=== PATIENT | female | born 1975 | race Caucasian/White ===

== ENCOUNTER 2018-09-25 16:05 | Observation (INO) ==
[2018-09-25] MEDS ORDERED: Aspirin 81 MG TAB.CHEW PO ONE (16:22)
--- NOTE | 2018-09-25 16:33 | Emergency Department Note ---
Disposition Clinical Impression: Unstable angina Disposition: Admitted As Inpatient Condition: Good Forms: ED Satisfaction Letter Chest Pain HPI - General Chief Complaint: ED Chest Pain Stated Complaint: CP x1 day Time Seen by Provider: 09/25/18 16:22 Vital Signs Reviewed: Yes Nursing Notes Reviewed: Yes - History of Present Illness HPI Narrative: 43-year-old female past medical history of coronary artery disease with heart catheterization not requiring stents or any other grafting. Presents emergency Department with a day and a half of chest pain and discomfort and tightness. Patient states it radiates into the left side of her neck into her left arm. Patient reported some cough or last few days as well, most. Production. She is a smoker. Patient states that the symptoms have been worse on exertion. They have been intermittent, and it just got worse today which prompted her visit to the emergency department. Severity scale (1-10): 4 - Related Data Home Medications Medication Instructions Recorded Confirmed Labetalol [Trandate] 100 mg PO BID 02/06/16 09/25/18 Aspirin [Lo-Dose Aspirin EC] 81 mg PO DAILY 09/25/18 09/25/18 Atorvastatin [Lipitor] 40 mg PO HS 09/25/18 09/25/18 Buprenorphine HCl/Naloxone HCl 1 tab SL BID 09/25/18 09/25/18 [Buprenorphin-Naloxon 8-2 mg Sl] Gabapentin [Neurontin] 100 mg PO TID 09/25/18 09/25/18 Lisinopril [Zestril] 10 mg PO DAILY 09/25/18 09/25/18 Allergies Allergy/AdvReac Type Severity Reaction Status Date / Time No Known Allergies Allergy Verified 09/24/15 10:23 All systems ED: reviewed and negative except as stated. Review of Systems: As Per HPI Constitutional: Denies: fever Cardiovascular: Reports: chest pain Respiratory: Reports: cough, dyspnea Gastrointestinal: Denies: abdominal pain, nausea, vomiting Genitourinary: Denies: urgency, dysuria, frequency Musculoskeletal: Reports: neck pain. 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 Absent: respiratory distress, accessory muscle use - Cardiovascular Cardiovascular exam: Present: regular rate, normal rhythm - Abdominal Exam Abdominal exam: Present: soft, Non-Tender. Absent: distention, guarding, rebound, rigidity - Extremities Exam Extremities exam: Present: normal capillary refill - Back Exam Back exam: Present: full ROM - Neurological Exam Neurological exam: Present: alert, oriented X3, CN II-XII intact - Psychiatric Psychiatric exam: Present: normal affect, normal mood - Skin Skin exam: Present: warm, dry, intact, normal color. Absent: rash Course Vital Signs Temperature 98.3 F 09/25/18 16:16 Pulse Rate 86 09/25/18 16:16 Respiratory Rate 16 09/25/18 16:16 Blood Pressure 131/87 09/25/18 16:16 O2 Sat by Pulse Oximetry 100 09/25/18 16:16 Temperature 98.3 F 09/25/18 16:30 Pulse Rate 92 09/25/18 18:41 Respiratory Rate 15 09/25/18 18:41 Blood Pressure 141/95 09/25/18 18:41 O2 Sat by Pulse Oximetry 99 09/25/18 18:41 Oxygen Delivery Oxygen Delivery Room Air Chest Pain - [facility] Narrative Medical decision making narrative: 43-year-old female presents emergency department with concern for intermittent chest pain over the last day and a half. Patient's initial EKG revealed some ST depressions in the septal and lateral leads. The repeat EKG shortly after, and these are no longer present. Patient has history of coronary artery disease. Chest x-ray did not reveal any cardiopulmonary abnormality. Troponin was negative. We also gave patient a DuoNeb and steroids here in the emergency department as there was concern that some of her symptoms related to a COPD exacerbation. Symptoms or help some. However, she was uncertain chest pain shortness of breath. Patient was initially given nitroglycerin sublingually and this helped out her chest pain. She started having chest pain later on throughout her stay and she was given another 2 nitroglycerin which relieved her chest pain completely. Patient chest pain-free. Spoke with her about admitting her due to her recurrent chest pain and the concern that she needed further observation. She agrees with plan. Patient hemodynamically stable not in acute distress at time of admission to the hospitalist. We did start patient on heparin drip via ACS protocol as well as aspirin. Vital Signs Temperature 98.3 F 09/25/18 16:16 Pulse Rate 86 09/25/18 16:16 Respiratory Rate 16 09/25/18 16:16 Blood Pressure 131/87 09/25/18 16:16 O2 Sat by Pulse Oximetry 100 09/25/18 16:16 Temperature 98.3 F 09/25/18 16:30 Pulse Rate 92 09/25/18 18:41 Respiratory Rate 15 09/25/18 18:41 Blood Pressure 141/95 09/25/18 18:41 O2 Sat by Pulse Oximetry 99 09/25/18 18:41 Oxygen Delivery Oxygen Delivery Room Air Chest X-Ray 09/25/18 16:22 IMPRESSION: No acute process. D/ / Drake Arriaga MD / Drake Arriaga MD Interpreting Provider: Drake Arriaga MD - Lab Data Result diagrams: 09/25/18 16:33 09/25/18 16:33 Lab Results 09/25/18 09/25/18 09/25/18 Range/Units 16:33 16:33 16:33 WBC 8.6 (4.3-11.1) K/mcL RBC 4.99 H (3.82-4.97) M/mcL Hgb 16.3 H (11.5-15.4) g/dL Hct 48.6 H (35.3-44.9) % MCV 97.4 (83.0-100.0) fL MCH 32.7 (28.0-33.3) pg MCHC 33.5 (31.6-35.5) g/dL RDW 12.9 (11.5-14.5) % Plt Count 239 (140-400) K/mcL MPV 10.3 (9.4-12.4) fL Immature Gran % 0.6 (0-4) % Seg Neutrophils % 64.3 % Lymphocytes % 24.4 % Monocytes % 8.8 % Eosinophils % 1.0 % Basophils % 0.9 % Neutrophils # 5.5 (1.6-8.9) K/mcL Lymphocytes # 2.1 (0.6-4.6) K/mcL Monocytes # 0.8 (0.0-1.3) K/mcL Eosinophils # 0.1 (0.0-0.6) K/mcL Basophils # 0.1 (0.0-0.2) K/mcL PT 11.1 (9.4-12.1) Seconds INR 1.0 APTT 30.2 (26.0-36.0) Seconds Sodium (136-145) mEq/L Potassium (3.5-5.1) mEq/L Chloride (98-107) mEq/L Carbon Dioxide (23-29) mEq/L BUN (6-20) mg/dL Creatinine (0.60-1.20) mg/dL Est GFR ( Amer) (> 60) Est GFR (Non-Af Amer) (> 60) BUN/Creatinine Ratio (6-26) Glucose (70-105) mg/dL Calculated Osmolality (280-300) Calcium (8.6-10.3) mg/dL Troponin I (< 0.04) ng/mL B-Natriuretic Peptide 19 (Less than 100) pg/mL Urine Color (Yellow) Urine Clarity (Clear) Urine pH (5.0-8.0) pH Units Ur Specific [place] (1.010-1.025) Urine Protein (Neg-Trace) mg/dL Urine Glucose (UA) (Normal) mg/dL Urine Ketones (Negative) mg/dL Urine Blood (Negative) Urine Nitrite (Negative) Urine Bilirubin (Negative) Urine Urobilinogen (Normal) mg/dL Ur Leukocyte Esterase (Negative) Urine Microscopic RBC (0-3) per hpf Urine Microscopic WBC (0-3) per hpf Ur Squamous Epith Cells (None-Few) per lpf Urine Bacteria (None-Few) per hpf Hyaline Casts (None-Few) per lpf Ur Culture Indicated? (NO) 09/25/18 09/25/18 Range/Units 16:33 17:18 WBC (4.3-11.1) K/mcL RBC (3.82-4.97) M/mcL Hgb (11.5-15.4) g/dL Hct (35.3-44.9) % MCV (83.0-100.0) fL MCH (28.0-33.3) pg MCHC (31.6-35.5) g/dL RDW (11.5-14.5) % Plt Count (140-400) K/mcL MPV (9.4-12.4) fL Immature Gran % (0-4) % Seg Neutrophils % % Lymphocytes % % Monocytes % % Eosinophils % % Basophils % % Neutrophils # (1.6-8.9) K/mcL Lymphocytes # (0.6-4.6) K/mcL Monocytes # (0.0-1.3) K/mcL Eosinophils # (0.0-0.6) K/mcL Basophils # (0.0-0.2) K/mcL PT (9.4-12.1) Seconds INR APTT (26.0-36.0) Seconds Sodium 140 (136-145) mEq/L Potassium 3.7 (3.5-5.1) mEq/L Chloride 106 (98-107) mEq/L Carbon Dioxide 24 (23-29) mEq/L BUN 19 (6-20) mg/dL Creatinine 0.82 (0.60-1.20) mg/dL Est GFR ( Amer) > 60 (> 60) Est GFR (Non-Af Amer) > 60 (> 60) BUN/Creatinine Ratio 23 (6-26) Glucose 132 H (70-105) mg/dL Calculated Osmolality 294 (280-300) Calcium 10.3 (8.6-10.3) mg/dL Troponin I < 0.03 (< 0.04) ng/mL B-Natriuretic Peptide (Less than 100) pg/mL Urine Color Dark Yellow (Yellow) Urine Clarity Clear (Clear) Urine pH 6.0 (5.0-8.0) pH Units Ur Specific [place] 1.029 H (1.010-1.025) Urine Protein Trace (Neg-Trace) mg/dL Urine Glucose (UA) Normal (Normal) mg/dL Urine Ketones Trace H (Negative) mg/dL Urine Blood Negative (Negative) Urine Nitrite Negative (Negative) Urine Bilirubin Small H (Negative) Urine Urobilinogen Normal (Normal) mg/dL Ur Leukocyte Esterase Trace H (Negative) Urine Microscopic RBC 0-3 (0-3) per hpf Urine Microscopic WBC 5-15 H (0-3) per hpf Ur Squamous Epith Cells Many H (None-Few) per lpf Urine Bacteria Few (None-Few) per hpf Hyaline Casts Moderate H (None-Few) per lpf Ur Culture Indicated? NO. A (NO) - EKG Data EKG attestation: Yes I reviewed and interpreted this EKG. EKG results narrative: EKG #1 16:10 Heart rate 77 bpm, ID interval 112 ms, QRS duration 92 ms, normal axis. ST depressions in the septal and lateral leads. EKG #2 16:33 ST depressions are no longer present sinus rhythm Heart Score - Score History: Highly Suspicious EKG: Normal Age: Less than 45 Risk Factors: Equal/Greater than 3 risk factor or history of atherosclerotic disease Troponin: Less than normal limit HEART Score Total: 4 Attestation Statement - Attestation Attestation: I, Erick Camargo DO, examined this patient [id number] and my medical decision-making was reviewed with Dr. Hong Holden, Resident Physician. I agree with the documented findings, disposition and treatment plan as described except to the extent set forth below. Please see my progress notes for details.
[2018-09-25] MEDS: Nitroglycerin 0.4 MG TAB.SUBL SL ONE ×3 (16:44→18:30)
[2018-09-25 16:49] LABS: Basophils # 0.1 K/mcL (0.0-0.2); Basophils % 0.9 %; Eosinophils # 0.1 K/mcL (0.0-0.6); Hematocrit 48.6 % (35.3-44.9); Hemoglobin 16.3 g/dL (11.5-15.4); Immature Granulocytes % 0.6 % (0-4); Lymphocytes # 2.1 K/mcL (0.6-4.6); Lymphocytes % 24.4 %; Mean Corpuscular HGB Conc 33.5 g/dL (31.6-35.5); Mean Corpuscular Hemoglobin 32.7 pg (28.0-33.3); Mean Corpuscular Volume 97.4 fL (83.0-100.0); Mean Platelet Volume 10.3 fL (9.4-12.4); Monocytes # 0.8 K/mcL (0.0-1.3); Monocytes % 8.8 %; Neutrophils # 5.5 K/mcL (1.6-8.9); Platelet Count 239 K/mcL (140-400); Red Blood Count 4.99 M/mcL (3.82-4.97); Red Cell Distribution Width 12.9 % (11.5-14.5); Segmented Neutrophils % 64.3 %
[2018-09-25 16:56] LABS: Prothrombin Time 11.1 Seconds (9.4-12.1)
[2018-09-25 16:58] LABS: Activated Partial Thrombo Time 30.2 Seconds (26.0-36.0)
[2018-09-25] MEDS ORDERED: Ipratropium/Albuterol Neb 3 ML IH ONE (16:59)
[2018-09-25] MEDS ORDERED: predniSONE 20 MG TABLET PO ONE (16:59)
[2018-09-25 17:08] LABS: BUN/Creatinine Ratio 23 (6-26); Blood Urea Nitrogen 19 mg/dL (6-20); Calcium 10.3 mg/dL (8.6-10.3); Carbon Dioxide 24 mEq/L (23-29); Chloride 106 mEq/L (98-107); Glucose 132 mg/dL (70-105); Osmolality,Calculated 294 (280-300); Potassium 3.7 mEq/L (3.5-5.1); Sodium 140 mEq/L (136-145); Troponin I < 0.03 ng/mL (< 0.04); eGFR For Non-African Americans > 60 (> 60)
--- NOTE | 2018-09-25 17:18 | Emergency Department Note ---
Disposition Clinical Impression: Unstable angina, Wheezing Chest pain Qualifiers: Chest pain type: unspecified Qualified Code(s): R07.9 - Chest pain, unspecified Disposition: Admitted As Inpatient Condition: Fair Referrals: Kathy Stubbs MD [Primary Care Provider] - Forms: ED Satisfaction Letter Time of Disposition: 19:49 General Adult HPI - General Chief complaint: ED Chest Pain Stated complaint: CP x1 day Time Seen by Provider: 09/25/18 16:22 Source: patient Limitations: no limitations - History of Present Illness Pain Scale: 2 - Related Data Home Medications Medication Instructions Recorded Confirmed Labetalol [Trandate] 100 mg PO BID 02/06/16 09/25/18 Aspirin [Lo-Dose Aspirin EC] 81 mg PO DAILY 09/25/18 09/25/18 Atorvastatin [Lipitor] 40 mg PO HS 09/25/18 09/25/18 Buprenorphine HCl/Naloxone HCl 1 tab SL BID 09/25/18 09/25/18 [Buprenorphin-Naloxon 8-2 mg Sl] Gabapentin [Neurontin] 100 mg PO TID 09/25/18 09/25/18 Lisinopril [Zestril] 10 mg PO DAILY 09/25/18 09/25/18 Allergies Allergy/AdvReac Type Severity Reaction Status Date / Time No Known Allergies Allergy Verified 09/24/15 10:23 Past Medical History - Past Medical History Medical history: Reports: hypertension, myocardial infarction Surgical history: Reports: hysterectomy, orthopedic, other Psychiatric history: Reports: no psych history 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 history - Social History Smoking Status: Current every day smoker Smokeless Tobacco Status: No Alcohol use: Reports: none Drug use: Reports: none Physical Exam - General Limitations: no limitations General appearance: alert Course Vital Signs Temperature 98.3 F 09/25/18 16:16 Pulse Rate 86 09/25/18 16:16 Respiratory Rate 16 09/25/18 16:16 Blood Pressure 131/87 09/25/18 16:16 O2 Sat by Pulse Oximetry 100 09/25/18 16:16 Temperature 98.3 F 09/25/18 16:30 Pulse Rate 92 09/25/18 18:41 Respiratory Rate 15 09/25/18 18:41 Blood Pressure 141/95 09/25/18 18:41 O2 Sat by Pulse Oximetry 99 09/25/18 18:41 Oxygen Delivery Oxygen Delivery Room Air Medical Decision Making - Lab Data Result diagrams: 09/25/18 16:33 09/25/18 16:33 Lab Results 09/25/18 09/25/18 09/25/18 Range/Units 16:33 16:33 16:33 WBC 8.6 (4.3-11.1) K/mcL RBC 4.99 H (3.82-4.97) M/mcL Hgb 16.3 H (11.5-15.4) g/dL Hct 48.6 H (35.3-44.9) % MCV 97.4 (83.0-100.0) fL MCH 32.7 (28.0-33.3) pg MCHC 33.5 (31.6-35.5) g/dL RDW 12.9 (11.5-14.5) % Plt Count 239 (140-400) K/mcL MPV 10.3 (9.4-12.4) fL Immature Gran % 0.6 (0-4) % Seg Neutrophils % 64.3 % Lymphocytes % 24.4 % Monocytes % 8.8 % Eosinophils % 1.0 % Basophils % 0.9 % Neutrophils # 5.5 (1.6-8.9) K/mcL Lymphocytes # 2.1 (0.6-4.6) K/mcL Monocytes # 0.8 (0.0-1.3) K/mcL Eosinophils # 0.1 (0.0-0.6) K/mcL Basophils # 0.1 (0.0-0.2) K/mcL PT 11.1 (9.4-12.1) Seconds INR 1.0 APTT 30.2 (26.0-36.0) Seconds Sodium (136-145) mEq/L Potassium (3.5-5.1) mEq/L Chloride (98-107) mEq/L Carbon Dioxide (23-29) mEq/L BUN (6-20) mg/dL Creatinine (0.60-1.20) mg/dL Est GFR ( Amer) (> 60) Est GFR (Non-Af Amer) (> 60) BUN/Creatinine Ratio (6-26) Glucose (70-105) mg/dL Calculated Osmolality (280-300) Calcium (8.6-10.3) mg/dL Troponin I (< 0.04) ng/mL B-Natriuretic Peptide 19 (Less than 100) pg/mL Urine Color (Yellow) Urine Clarity (Clear) Urine pH (5.0-8.0) pH Units Ur Specific [place] (1.010-1.025) Urine Protein (Neg-Trace) mg/dL Urine Glucose (UA) (Normal) mg/dL Urine Ketones (Negative) mg/dL Urine Blood (Negative) Urine Nitrite (Negative) Urine Bilirubin (Negative) Urine Urobilinogen (Normal) mg/dL Ur Leukocyte Esterase (Negative) Urine Microscopic RBC (0-3) per hpf Urine Microscopic WBC (0-3) per hpf Ur Squamous Epith Cells (None-Few) per lpf Urine Bacteria (None-Few) per hpf Hyaline Casts (None-Few) per lpf Ur Culture Indicated? (NO) 09/25/18 09/25/18 Range/Units 16:33 17:18 WBC (4.3-11.1) K/mcL RBC (3.82-4.97) M/mcL Hgb (11.5-15.4) g/dL Hct (35.3-44.9) % MCV (83.0-100.0) fL MCH (28.0-33.3) pg MCHC (31.6-35.5) g/dL RDW (11.5-14.5) % Plt Count (140-400) K/mcL MPV (9.4-12.4) fL Immature Gran % (0-4) % Seg Neutrophils % % Lymphocytes % % Monocytes % % Eosinophils % % Basophils % % Neutrophils # (1.6-8.9) K/mcL Lymphocytes # (0.6-4.6) K/mcL Monocytes # (0.0-1.3) K/mcL Eosinophils # (0.0-0.6) K/mcL Basophils # (0.0-0.2) K/mcL PT (9.4-12.1) Seconds INR APTT (26.0-36.0) Seconds Sodium 140 (136-145) mEq/L Potassium 3.7 (3.5-5.1) mEq/L Chloride 106 (98-107) mEq/L Carbon Dioxide 24 (23-29) mEq/L BUN 19 (6-20) mg/dL Creatinine 0.82 (0.60-1.20) mg/dL Est GFR ( Amer) > 60 (> 60) Est GFR (Non-Af Amer) > 60 (> 60) BUN/Creatinine Ratio 23 (6-26) Glucose 132 H (70-105) mg/dL Calculated Osmolality 294 (280-300) Calcium 10.3 (8.6-10.3) mg/dL Troponin I < 0.03 (< 0.04) ng/mL B-Natriuretic Peptide (Less than 100) pg/mL Urine Color Dark Yellow (Yellow) Urine Clarity Clear (Clear) Urine pH 6.0 (5.0-8.0) pH Units Ur Specific [place] 1.029 H (1.010-1.025) Urine Protein Trace (Neg-Trace) mg/dL Urine Glucose (UA) Normal (Normal) mg/dL Urine Ketones Trace H (Negative) mg/dL Urine Blood Negative (Negative) Urine Nitrite Negative (Negative) Urine Bilirubin Small H (Negative) Urine Urobilinogen Normal (Normal) mg/dL Ur Leukocyte Esterase Trace H (Negative) Urine Microscopic RBC 0-3 (0-3) per hpf Urine Microscopic WBC 5-15 H (0-3) per hpf Ur Squamous Epith Cells Many H (None-Few) per lpf Urine Bacteria Few (None-Few) per hpf Hyaline Casts Moderate H (None-Few) per lpf Ur Culture Indicated? NO. A (NO) Attestation Statement - Attestation Attestation: I, Erick Camargo DO, examined this patient [id number] and my medical decision-making was reviewed with Dr. Hong Holden, Resident Physician. I agree with the documented findings, disposition and treatment plan as described ex cept to the extent set forth below. Please see my progress notes for details. 43-year-old female presents to the emergency room for evaluation of chest tightness and pain. Patient has had these symptoms for approximately 24 hours at this time. She is felt lightheaded been progressively getting worse over that timeframe. Currently, she denies fevers, chills, nausea, vomiting, [place] rrhea. Denies any headache or vision change. Denies any specific shortness of breath but she is a heavy smoker. She is never been diagnosed with COPD before in the past. Vital signs otherwise unremarkable initially. EKG was collected in triage and does have some concerning T-wave inversions noted that appear to be different from previous but her most recent EKG prior to that was not available to initially visualize. Patient was symptomatic control started this time and nitroglycerin, aspirin, EKG CBC chemistry troponin and BNP. Chest x- ray will also be ordered. On physical exam the patient is resting comfortably in the bed. She has had some moderate relief with her first 2 doses of nitroglycerin. Her heart is regular. Lungs are diminished with poor air movement with intermittent expiratory wheezing noted in the peripheries. Patient will have breathing treatments and steroids provided at this time. Expect patient will require admission for either ACS rule out versus COPD ex acerbation. Patient does have a concerning cardiac history including a catheterization several years ago for similar issue. Patient is otherwise currently stable this time. Symptomatically controlled will be completed and then disposition will be determined. See detailed documentation of the physical exam, medical intervention, medical decision-making and disposition in the resident physician's note. 194 Patient had reemergence of her chest discomfort after the initial 2 nitroglycerin that were given. Breathing treatments did help the tightness. Prior to the reemergence of the pain the patient was 100% asymptomatic. Repeat doses of nitroglycerin were given again. The symptoms completely resolved again at this time. Patient will be started on heparin here in the emergency room s econdary to the presentation concerning for unstable angina. Her EKG has not shown any changes while here and her troponin was negative. The symptoms have been present for multiple hours of pain. Clinical suspicion is more for a cardiopulmonary mixed presentation as opposed to strictly cardiac. Patient will be observed in the hospital setting for continuation of care. Dr. Contreras was contacted and he had no other recommendations at this time. Patient has denied any vaginal bleeding or discharge. Denies any history of GI bleeds or rectal bleeds at this point. Patient is otherwise clinically stable will be monitored here in the emergency room until the admission process is completed.
[2018-09-25 17:29] LABS: Bilirubin,Urine Small (Negative); Blood,Urine Negative (Negative); Clarity,Urine Clear (Clear); Color,Urine Dark Yellow (Yellow); Glucose,Urine (UA) Normal (Normal); Ketones,Urine Trace mg/dL (Negative); Leukocyte Esterase,Urine Trace (Negative); Nitrite,Urine Negative (Negative); Protein,Urine Trace mg/dL (Neg-Trace); Specific Gravity,Urine 1.029 (1.010-1.025); Urobilinogen,Urine Normal (Normal)
[2018-09-25 17:30] LABS: Bacteria,Urine Few per hpf (None-Few); Hyaline Casts,Urine Moderate per lpf (None-Few); RBC,Urine 0-3 per hpf (0-3); Squamous Epithelial Cell,Urine Many per lpf (None-Few)
[2018-09-25] MEDS ORDERED: Ondansetron 4 MG/2 ML VIAL IVP ONE (18:21)
[2018-09-25] MEDS ORDERED: Nitroglycerin 0.4 MG TAB.SUBL SL ONE (18:25)
[2018-09-25] MEDS ORDERED: *HR* Heparin 5,000 UNIT/ML VIAL IVP ONE (19:48)
[2018-09-25] MEDS ORDERED: *HR* Heparin 5,000 UNIT/ML VIAL IVP PRN ×2 (19:48)
[2018-09-25] MEDS ORDERED: Heparin 25,000 UNIT/500 ML D5W 25,000 UNIT/500 ML BAG IVC SCH (20:00)
[2018-09-25 20:31] LABS: Heparin anti-factor XA UFH 0.05 IU/mL (0.30-0.70); Prothrombin Time 11.6 Seconds (9.4-12.1)
[2018-09-25] MEDS: BUPRENORPHINE/NALOXONE 8-2MG SL SCH (21:41)
[2018-09-25] MEDS: Gabapentin 100 MG CAPSULE PO SCH (21:52)
[2018-09-25] MEDS ORDERED: Ipratropium/Albuterol Neb 3 ML IH SCH (22:00)
--- NOTE | 2018-09-25 23:52 | Internal Med History&Physical ---
Date of Encounter: 09/25/18 Time of Encounter: 23:50 Internal Medicine - H&P: HPI Chief complaint: Chest pain Plans for Post Hospital Care: Home History of present illness: Cleo Collier is a 43 year old woman who reports a history of CAD s/p cath in 2013 but no stent placement who presents to the ED complaining of left sided chest pain with radiation to her jaw and neckline associated with difficulty breathing and lightheadedness. She states that it started last night at rest and subsided when she went to sleep but again it recurred today and has been persistent. She feels it is worsened by exertion although it remains intermi ttent in apparition. She was given laoding dose of ASA and required 2 NTG to obtain modest relief. By the time her chest pain returned, she was placed on heparin drip in the ER prior to admission. Her initial EKG was concerning for some ST segment depressions in the lateral leads however repeat was unrevealing. Initial troponin negative. She is admitted for ongoing observation. PMHx: HTN, CAD. SHx: Active Smoker, denies illicit drug use. FHx: HTN in father. Review of systems: All systems reviewed and negative except as listed above in the HPI. Past Med Surg Social Fam HX - Past Medical History Medical history: hypertension, myocardial infarction Psychiatric history: no psych history - Past Surgical History Surgical History: hysterectomy, orthopedic, other Additional surgical history: ORTIZ AND PINS IN RIGHT LEG - Social History Smoking Status: Current every day smoker Packs per day: 1 Smokeless Tobacco Status: No Alcohol use: none Drug use: none - Family History Mother History Unknown: Yes Living Status: Still Living Internal Medicine - H&P: Meds Labetalol [Trandate] 100 mg PO BID 02/06/16 [History] Aspirin [Lo-Dose Aspirin EC] 81 mg PO DAILY 09/25/18 [History] Atorvastatin [Lipitor] 40 mg PO HS 09/25/18 [History] Buprenorphine HCl/Naloxone HCl [Buprenorphin-Naloxon 8-2 mg Sl] 1 tab SL BID 09/25/18 [History] Gabapentin [Neurontin] 100 mg PO TID 09/25/18 [History] Lisinopril [Zestril] 10 mg PO DAILY 09/25/18 [History] Allergy/AdvReac Type Severity Reaction Status Date / Time No Known Allergies Allergy Verified 09/24/15 10:23 All Systems PM: A 10-system review of systems was performed and is negative for pertinent findings except as documented above in the HPI. - Constitutional Vitals: Temp Pulse Resp BP Pulse Ox 97.8 F 69 14 155/88 97 09/25/18 23:08 09/25/18 23:08 09/25/18 23:08 09/25/18 23:08 09/25/18 23:08 Exam: Vitals: Reviewed General: Well-developed, NAD, smells of cigarettes. Skin: Warm and supple. HEENT: Moist mucous membranes. No conjunctivae pallor. Neck: No lymphadenopathy. No JVD. No carotid bruits. No palpable thyroid. Chest: Normal thoracic expansion. Normal breath sounds. Clear to auscultation. Heart: Normal S1 & S2; rhythmic. No rubs or murmurs. Abdomen: Non-distended, soft and non-tender to palpation. No peritoneal reaction. Extremities: No clubbing, cyanosis or edema. No calf tenderness. Normal distal pulses. Neurological: Awake, alert and oriented to person, place and time. No focal deficits. Psych: Affect appropriate. Internal Med - H&P Results - Labs CBC & Chem 7: 09/25/18 16:33 09/25/18 16:33 Labs: Short CBC 09/25/18 Range/Units 16:33 WBC 8.6 (4.3-11.1) K/mcL Hgb 16.3 H (11.5-15.4) g/dL Hct 48.6 H (35.3-44.9) % Plt Count 239 (140-400) K/mcL Neutrophils # 5.5 (1.6-8.9) K/mcL BMP 09/25/18 16:33 Sodium 140 Potassium 3.7 Chloride 106 Carbon Dioxide 24 BUN 19 Creatinine 0.82 Glucose 132 H Calcium 10.3 Cardiac Enzymes 09/25/18 Range/Units 16:33 Troponin I < 0.03 (< 0.04) ng/mL Urine 09/25/18 Range/Units 17:18 Urine Color Dark Yellow (Yellow) Urine Clarity Clear (Clear) Urine pH 6.0 (5.0-8.0) pH Units Ur Specific [place] 1.029 H (1.010-1.025) Urine Protein Trace (Neg-Trace) mg/dL Urine Glucose (UA) Normal (Normal) mg/dL - Impressions ITS Impressions Chest X-Ray 09/25/18 16:22 IMPRESSION: No acute process. D/ / Drake Arriaga MD / Drake Arriaga MD Interpreting Provider: Drake Arriaga MD - Assessment and plan (1) Chest pain Current Visit: Yes Status: Acute Assessment and plan: The patient's symptoms are rather concerning and could be seen as unstable angina. Will continue to monitor on telemetry and trend troponins. Will discontinue heparin gtt if she remains clinically stable and negative enzymes. Will keep NPO as she may benefit from a stress test in the morning. Qualifiers: Chest pain type: precordial pain Qualified Code(s): R07.2 - Precordial pain (2) CAD (coronary artery disease) Current Visit: Yes Status: Acute Assessment and plan: Continue daily aspirin and high intensity statin. Qualifiers: Coronary Disease-Associated Artery/Lesion type: [place] artery [place] vs. transplanted heart: [place] heart Associated angina: with unstable angina Qualified Code(s): I25.110 - Atherosclerotic heart disease of [place] coronary artery with unstable angina pectoris (3) HTN (hypertension) Current Visit: Yes Status: Acute Assessment and plan: We will resume her oral antihypertensive agents. Qualifiers: Hypertension type: essential hypertension Qualified Code(s): I10 - Essential (primary) hypertension (4) Smoker Current Visit: Yes Status: Acute Assessment and plan: Counseled accordingly and resources made available. (5) DVT prophylaxis Current Visit: Yes Status: Acute Assessment and plan: Subcutaneous heparin. - Time Spent With Patient Total time spent is greater than 50% in coordination of care (as documented) at patient's floor/unit and/or counseling patient: Greater than 35 minutes
[2018-09-26] MEDS ORDERED: Ipratropium/Albuterol Neb 3 ML IH PRN (00:10)
[2018-09-26] MEDS ORDERED: *HR* Heparin 5,000 UNIT/ML VIAL SQ SCH (06:00)
[2018-09-26 06:08] LABS: Amphetamine Screen,Urine Negative ng/mL (Cutoff=1000); Barbiturate Screen,Urine Negative ng/mL (Cutoff=200)
[2018-09-26 06:09] LABS: Benzodiazepines Screen,Urine Negative ng/mL (Cutoff=300); Cannabinoid Screen,Urine Negative ng/mL (Cutoff = 50); Cocaine Screen,Urine Negative ng/mL (Cutoff= 300); Opiate Screen,Urine Negative ng/mL (Cutoff=300); Phencyclidine Screen,Urine Negative ng/mL (Cutoff=25)
[2018-09-26] MEDS ORDERED: Regadenoson 0.4 MG/5 ML SYRINGE IVP ONE (06:15)
[2018-09-26 07:08] LABS: Basophils % 0.4 %; Eosinophils % 0.1 %; Hematocrit 43.5 % (35.3-44.9); Immature Granulocytes % 0.4 % (0-4); Lymphocytes # 1.2 K/mcL (0.6-4.6); Lymphocytes % 15.6 %; Mean Corpuscular HGB Conc 33.8 g/dL (31.6-35.5); Mean Corpuscular Hemoglobin 33.3 pg (28.0-33.3); Mean Corpuscular Volume 98.4 fL (83.0-100.0); Mean Platelet Volume 10.6 fL (9.4-12.4); Monocytes # 0.5 K/mcL (0.0-1.3); Monocytes % 6.4 %; Neutrophils # 5.7 K/mcL (1.6-8.9); Platelet Count 234 K/mcL (140-400); Red Blood Count 4.42 M/mcL (3.82-4.97); Segmented Neutrophils % 77.1 %
[2018-09-26 07:20] LABS: Hemoglobin 14.7 g/dL (11.5-15.4)
[2018-09-26 07:28] LABS: BUN/Creatinine Ratio 23 (6-26); Blood Urea Nitrogen 16 mg/dL (6-20); Calcium 9.4 mg/dL (8.6-10.3); Carbon Dioxide 26 mEq/L (23-29); Chloride 107 mEq/L (98-107); Glucose 126 mg/dL (70-105); Osmolality,Calculated 293 (280-300); Potassium 4.2 mEq/L (3.5-5.1); Sodium 140 mEq/L (136-145); eGFR For Non-African Americans > 60 (> 60)
[2018-09-26] MEDS ORDERED: Aspirin Enteric Coated 81 MG Tablet PO SCH (09:00)
[2018-09-26] MEDS: Gabapentin 100 MG CAPSULE PO SCH (09:04)
[2018-09-26] MEDS: BUPRENORPHINE/NALOXONE 8-2MG SL SCH (09:04)
[2018-09-26 10:37] VITALS: BP 131/69
--- NOTE | 2018-09-26 14:14 | Discharge Summary ---
- NOTES TO OUTPATIENT PROVIDER Notes to Outpatient Provider: Follow up with PCP in one week Orders not resulted at time of discharge: Pending orders 09/25/18 20:38 NM [place] perf SPECT multi [NM] Routine 09/25/18 20:40 EKG [ECG 12 lead ECG] [ECG] Stat Date of Encounter: 09/26/18 Time of Encounter: 14:10 - Discharge Diagnosis (1) Chest pain Priority: Primary Status: Acute Qualifiers: Chest pain type: precordial pain Qualified Code(s): R07.2 - Precordial pain (2) HTN (hypertension) Priority: Secondary Status: Acute Qualifiers: Hypertension type: essential hypertension Qualified Code(s): I10 - Essential (primary) hypertension (3) CAD (coronary artery disease) Priority: Secondary Status: Acute Qualifiers: Coronary Disease-Associated Artery/Lesion type: [place] artery [place] vs. transplanted heart: [place] heart Associated angina: with unstable angina Qualified Code(s): I25.110 - Atherosclerotic heart disease of [place] coronary artery with unstable angina pectoris (4) Smoker Priority: Secondary Status: Acute (5) DVT prophylaxis Priority: Secondary Status: Acute Hospital course: Ms. Collier is a 43 year old female with a known past medical history of hypertension, hyperlipidemia and chronic tobacco dependence patient who prese nted emergency room complaining about left sided chest pain radiating to her jaw. She does have epigastric discomfort also. Given her multiple risk factors patient was high risk for ACS so patient was admitted in the hospital and placed on the rn cardiac rehab . Checked her serial troponin x 3 which were negative. She did have nuclear stress test which came back as negative. Her CP/ epigastric discomfort seems to be due to gastritis, recommended to start taking Prilosec 20 mg PO daily. Also counseled to quit smoking and started on nicotine patches - Time Spent with Patient Total time spent providing and/or coordinating discharge services: - Discharge Medications Prescriptions: Nicotine Patch [Nicoderm] 21 mg TD DAILY #30 patch.[id number] Omeprazole [PriLOSEC] 20 mg PO DAILY #30 cap Home Medications: Labetalol [Trandate] 100 mg PO BID 02/06/16 [History] Aspirin [Lo-Dose Aspirin EC] 81 mg PO DAILY 09/25/18 [History] Atorvastatin [Lipitor] 40 mg PO HS 09/25/18 [History] Buprenorphine HCl/Naloxone HCl [Buprenorphin-Naloxon 8-2 mg Sl] 1 tab SL BID 09/25/18 [History] Gabapentin [Neurontin] 100 mg PO TID 09/25/18 [History] Lisinopril [Zestril] 10 mg PO DAILY 09/25/18 [History] Nicotine Patch [Nicoderm] 21 mg TD DAILY #30 patch.td24 09/26/18 [Rx] Omeprazole [PriLOSEC] 20 mg PO DAILY #30 cap 09/26/18 [Rx] Allergies/Adverse Reactions: Allergy/AdvReac Type Severity Reaction Status Date / Time No Known Allergies Allergy Verified 09/24/15 10:23 Date of admission: 09/25/18 19:48 Primary care physician: Kathy Stubbs - Constitutional Vitals: Temp Pulse Resp BP Pulse Ox 98.1 F 75 16 131/69 98 09/26/18 10:33 09/26/18 10:33 09/26/18 10:33 09/26/18 10:33 09/26/18 10:33 General appearance: Present: A&O X 3 Exam: Gen: Alert, awake, Oriented to time,place and person Chest: Diminished breath sounds B/L, No wheezing, No crackles, No rales Heart: S1S2+ RRR No murmurs Abd: Soft, NT, BS +, No organomegaly Ext: No edema, pulses are palpable, No calf tenderness Neuro : Benign findings Skin: No rash. - Patient Status Disposition: Home, Self-Care Condition: Good Overall status at discharge: patient is back to baseline - Discharge Instructions Follow Up With: Kathy Stubbs MD [Primary Care Provider] - 10/03/18 10:45 am - Diet and Activity Activity: increase activity as tolerated Diet: low salt diet
--- NOTE | 2018-09-26 15:57 | Electrocardiograph Report ---
[place] [address] Test Date: 2018-09-25 Pat Name: Cleo Collier Department: [id number] Room: 3B39 Gender: [employer]: JOSE ANGEL : 1975 Requested By: Erick Camargo Order Number: [id number] Reading MD: Miller Read Measurements Intervals [place] Rate: 77 P: 65 MT: 112 QRS: 66 QRSD: 93 T: 187 QT: 354 QTc: 386 Interpretive Statements SINUS RHYTHM WITH SHORT MT INTERVAL LEFT VENTRICULAR HYPERTROPHY AND ST-T CHANGE Electronically Signed On 09-26-2018 15:55:59 EST by Miller Read
--- NOTE | 2018-09-26 15:58 | Electrocardiograph Report ---
[address] [place] [address] Test Date: 2018-09-25 Pat Name: Cleo Collier Department: [id number] Room: 3B39 Gender: F [employer]: : 1975 Requested By: Ana Gilliam Order Number: [id number] Reading MD: Miller Read Measurements Intervals [place] Rate: 89 P: 52 FL: 113 QRS: 62 QRSD: 96 T: 99 QT: 410 QTc: 499 Interpretive Statements Sinus rhythm Probable LVH with secondary repol abnrm Borderline prolonged QT interval Electronically Signed On 09-26-2018 15:56:42 EST by Miller Read
== END 2018-09-26 15:58 | disposition home or self-care (01) ==
LOC: 3BNU 16:05 → EMEROOARM 16:05 → 3BNU 21:02
PROVIDERS: ADMIT Internal Medicine; ATTEND Internal Medicine

== ENCOUNTER 2021-03-02 06:43 | Observation (INO) ==
[2021-03-02] MEDS ORDERED: Melatonin 3 MG TABLET PO PRN ×2 (08:47→14:27)
[2021-03-02] MEDS ORDERED: Ketorolac 30 MG/ML VIAL IVP PRN ×2 (08:47→14:27)
[2021-03-02] MEDS ORDERED: Ondansetron 4 MG/2 ML VIAL IVP PRN ×3 (08:47→14:27)
[2021-03-02] MEDS ORDERED: Naloxone 0.4 MG/ML INJ IVP PRN ×2 (08:47→14:27)
[2021-03-02] MEDS ORDERED: Acetaminophen 325 MG TABLET PO PRN ×2 (08:47→14:27)
[2021-03-02] MEDS ORDERED: Ringers Solution, Lactated 1,000 ML IVC SCH ×3 (09:00→14:27)
[2021-03-02] MEDS ORDERED: lisinopriL 5 MG TABLET PO SCH (10:15)
[2021-03-02] MEDS ORDERED: Metoprolol XL (24 HR) Succ 25 MG TAB.ER.24H PO SCH (10:15)
[2021-03-02 11:28] LABS: Adenovirus Not Detected (Not Detect); Bordetella Pertussis Not Detected (Not Detect); Chlamydophila pneumoniae Not Detected (Not Detect); Coronavirus 229E Not Detected (Not Detect); Coronavirus HKU1 Not Detected (Not Detect); Coronavirus NL63 Not Detected (Not Detect); Coronavirus OC43 Not Detected (Not Detect); Human Metapneumovirus Not Detected (Not Detect); Human Rhinovirus/Enterovirus DETECTED (Not Detect); Influenza A Subtype 2009 H1 Not Detected (Not Detect); Influenza B Not Detected (Not Detect); Mycoplasma pneumoniae Not Detected (Not Detect); Parainfluenza Virus 1 Not Detected (Not Detect); Parainfluenza Virus 2 Not Detected (Not Detect); Parainfluenza Virus 3 Not Detected (Not Detect); Parainfluenza Virus 4 Not Detected (Not Detect); Respiratory Syncytial Virus Not Detected (Not Detect); SARS-CoV-2 Not Detected (Not Detect)
[2021-03-02] MEDS ORDERED: *HR* FentaNYL (PF) 100 MCG/2 ML VIAL IVP PRN (11:55)
[2021-03-02] MEDS ORDERED: *HR* Midazolam HCl 2 MG/2 ML VIAL ONE (12:07)
[2021-03-02] MEDS ORDERED: *HR* FentaNYL (PF) 100 MCG/2 ML VIAL ONE (12:07)
[2021-03-02] MEDS ORDERED: *HR* Propofol 200 MG/20 ML VIAL IVP ONE (12:08)
[2021-03-02] MEDS ORDERED: Lidocaine -MPF 2% 2 ML VIAL ONE (12:09)
[2021-03-02] MEDS ORDERED: Isovue-300 50ML VIAL ONE (12:14)
[2021-03-02] MEDS ORDERED: Dexamethasone 4 MG/ML VIAL ONE (12:55)
[2021-03-02] MEDS ORDERED: Ondansetron 4 MG/2 ML VIAL ONE (12:55)
[2021-03-02] MEDS ORDERED: *HR* PHENYLEPHRINE 1,000 MCG/10 ML SYRINGE IVP ONE (12:55)
[2021-03-02] MEDS ORDERED: Gabapentin 100 MG CAPSULE PO SCH ×2 (15:00)
[2021-03-02 16:43] VITALS: BP 162/89
[2021-03-02] MEDS ORDERED: Patient Taking Own Medication 1 EACH SL SCH (21:00)
[2021-03-02] MEDS ORDERED: SUBOXONE SL SCH (21:00)
[2021-03-03] MEDS ORDERED: Metoprolol XL (24 HR) Succ 25 MG TAB.ER.24H PO SCH (09:00)
[2021-03-03] MEDS ORDERED: lisinopriL 5 MG TABLET PO SCH (09:00)
[2021-03-03] MEDS ORDERED: Aspirin Enteric Coated 81 MG Tablet PO SCH ×2 (09:00)
== END 2021-03-02 19:09 | disposition home or self-care (01) ==
LOC: 2NENU
PROVIDERS: ADMIT Internal Medicine; ATTEND Internal Medicine